=== PATIENT | female | born 1990 ===

== ENCOUNTER 2018-01-28 20:44 | Emergency (ER) | payer OTHER ==
[2018-01-28 20:53] VITALS: BP 117/80; PULSE 80; RESP 20; TEMP 98.7; O2SAT 100
--- NOTE | 2018-01-28 21:55 | C.PDOC ---
History Of Present Illness 27 y/o female c/o left trapezius pain x 1 wk. Pt took muscle relaxers with no relief. Pt has hx of similar problem. Denies neck pain, numbness,tingling. no injury. Time Seen by Provider: 01/28/18 21:00 Chief Complaint (Nursing): Upper Extremity Problem/Injury History Per: Patient History/Exam Limitations: no limitations Onset/Duration Of Symptoms: Days Current Symptoms Are (Timing): Still Present Severity: Moderate Past Medical History Reviewed: Historical Data, Nursing Documentation, Vital Signs Vital Signs: Last Vital Signs Temp 98.7 F 01/28/18 20:49 Pulse 80 01/28/18 20:49 Resp 20 01/28/18 20:49 BP 117/80 01/28/18 20:49 Pulse Ox 100 01/28/18 22:27 - Medical History PMH: No Chronic Diseases Surgical History: No Surg Hx Family History: States: No Known Family Hx - Social History Hx Alcohol Use: No Hx Substance Use: No Review Of Systems Musculoskeletal: Positive for: Other (left trapezius pain) Physical Exam - Physical Exam Appears: Well, Non-toxic, No Acute Distress Skin: Warm, Dry Head: Atraumatic, Normacephalic Eye(s): bilateral: Normal Inspection Neck: No Midline Cervical Tenderness, Paracervical Tenderness (mild left), Supple, Other (tenderness in left trapezius) Chest: Symmetrical, No Tenderness Cardiovascular: Rhythm Regular, No Murmur Respiratory: No Decreased Breath Sounds Extremity: Normal ROM, No Tenderness Pulses: Left Radial: Normal, Right Radial: Normal Neurological/Psych: Oriented x3, Normal Speech, Normal Cognition, Normal Motor, Normal Sensation ED Course And Treatment O2 Sat by Pulse Oximetry: 100 (RA) Pulse Ox Interpretation: Normal Progress Note: Toradol IM Medical Decision Making Medical Decision Making: pt feeling better after toradol. wlil d/c home with naproxen, f/u pmd. Disposition Counseled Patient/Family Regarding: Diagnosis, Need For Followup, Rx Given - Disposition Referrals: [facility] [Outside] Disposition: HOME/ ROUTINE Disposition Time: 22:18 Condition: IMPROVED Additional Instructions: Por favor, tome naproxeno (con alimentos) segn lo recetado) para el dolor. Katelyn un seguimiento con briceno mdico o en la clnica mdica en unos monzon. Evite levantar objetos pesados. Aplique compresas fras al carri varias veces al da. Please take Naproxen (with food) as prescribed) for pain. Follow up with your doctor or in medical clinic in a few days. Avoid any heavy lifting. Apply cold compresses to area several times a day. 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 - Scribe Statement The provider has reviewed the documentation as recorded by the Soyibe Renu Hameed Provider Attestation All medical record entries made by the Scribe were at my direction and personally dictated by me. I have reviewed the chart and agree that the record accurately reflects my personal performance of the history, physical exam, medical decision making, and the department course for this patient. I have also personally directed, reviewed, and agree with the discharge instructions and disposition.
== END 2018-01-28 22:32 | disposition home or self-care (01) ==
LOC: C.ER 20:44
DX: S29.012A Strain of muscle and tendon of back wall of thorax, initial encounter (principal); X58.XXXA Exposure to other specified factors, initial encounter
CPT/HCPCS: 96372; 99283; J1885

== ENCOUNTER 2018-05-11 00:45 | Emergency (ER) | payer OTHER ==
[2018-05-11 01:26] LABS: SQUAMOUS EPITHIAL 54 /hpf (0-5); URINE BILIRUBIN NEGATIVE (NEGATIVE); URINE BLOOD 3+ (NEGATIVE); URINE CLARITY Hazy (Clear); URINE COLOR Red (YELLOW); URINE GLUCOSE (UA) NORMAL (Normal); URINE LEUKOCYTE ESTERASE 2+ Leu/uL (Negative); URINE PROTEIN 2+ mg/dL (NEGATIVE); URINE UROBILINOGEN NORMAL mg/dL (0.2-1.0); WBC CLUMPS MANY /hpf
--- NOTE | 2018-05-11 01:58 | C.PDOC ---
History Of Present Illness 27 year old female presents to the ED c/o dysuria, hematuria that started today. Patient denies fever, chills, back pain, abdominal pain, nausea, vomit, diarrhea, vaginal bleeding, vaginal discharge. Time Seen by Provider: 05/11/18 01:02 Chief Complaint (Nursing): Female Genitourinary History Per: Patient History/Exam Limitations: no limitations Onset/Duration Of Symptoms: Hrs Current Symptoms Are (Timing): Still Present Quality Of Discomfort: Burning Associated Symptoms: Urinary Symptoms Recent travel outside of the [place]: No Additional History Per: Patient Abnormal Vaginal Bleeding: No Past Medical History Reviewed: Historical Data, Nursing Documentation, Vital Signs Vital Signs: Last Vital Signs Temp 98 F 05/11/18 02:04 Pulse 86 05/11/18 02:04 Resp 20 05/11/18 02:04 BP 120/70 05/11/18 02:04 Pulse Ox 98 05/11/18 02:04 - Medical History PMH: No Chronic Diseases Surgical History: No Surg Hx Family History: States: Unknown Family Hx - Social History Hx Alcohol Use: No Hx Substance Use: No Review Of Systems Constitutional: Negative for: Fever, Chills Cardiovascular: Negative for: Chest Pain Respiratory: Negative for: Shortness of Breath Gastrointestinal: Negative for: Nausea, Vomiting Genitourinary: Positive for: Dysuria, Hematuria. Negative for: Vaginal Discharge, Vaginal Bleeding Skin: Negative for: Rash Physical Exam - Physical Exam Appears: Non-toxic, No Acute Distress Skin: Normal Color, Warm, Dry Head: Atraumatic, Normacephalic Eye(s): bilateral: Normal Inspection Oral Mucosa: Moist Neck: Normal ROM, Supple Chest: Symmetrical Cardiovascular: Rhythm Regular Respiratory: Normal Breath Sounds, No Rales, No Rhonchi, No Wheezing Gastrointestinal/Abdominal: Soft, No Tenderness, No Guarding, No Rebound Back: No CVA Tenderness Extremity: Normal ROM, No Tenderness, No Swelling Neurological/Psych: Oriented x3, Normal Speech Gait: Steady ED Course And Treatment O2 Sat by Pulse Oximetry: 100 (ON RA) Pulse Ox Interpretation: Normal Progress Note: Plan: - UA. - Macrobid 100 mg PO. - Pyridium 100 mg PO. Patient's US results came abck showing patient had a UTI, she was given antibiotics to take home. Patient was advised to follow up with PMD in 1-2 days. Disposition Counseled Patient/Family Regarding: Diagnosis, Need For Followup, Rx Given - Disposition Referrals: [facility] [Outside] [facility] [Outside] Disposition: HOME/ ROUTINE Disposition Time: 01:56 Condition: STABLE Additional Instructions: Please follow up in clinic Increase fluids Tylenol or advil for pain Take meds as directed Return to ER if worse Prescriptions: Nitrofurantoin Macrocrystals [Macrobid] 1 cap PO BID #14 cap Phenazopyridine HCl [Pyridium] 100 mg PO TID #6 tab Instructions: Urinary Tract Infection, Adult (DC) Forms: [employer] (Maori) Print Language: TELUGU - Clinical Impression Clinical Impression: UTI (urinary tract infection) - PA / 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 - Scribe Statement The provider has reviewed the documentation as recorded by the Scribe Rene Apple All medical record entries made by the Scribe were at my direction and personally dictated by me. I have reviewed the chart and agree that the record accurately reflects my personal performance of the history, physical exam, medical decision making, and the department course for this patient. I have also personally directed, reviewed, and agree with the discharge instructions and disposition.
[2018-05-11 02:05] VITALS: BP 120/70; PULSE 86; RESP 20; TEMP 98
[2018-05-11 02:59] VITALS: O2SAT 100
== END 2018-05-11 02:05 | disposition home or self-care (01) ==
LOC: C.ER 00:45
DX: N39.0 Urinary tract infection, site not specified (principal)